=== PATIENT | female | born 1985 | race African-American/Black ===

== ENCOUNTER 2016-08-04 23:02 | Emergency (ER) | payer SELFPAY ==
[2016-08-04] MEDS ORDERED: ACETAMINOPHEN 325 MG TAB ONE (23:16)
[2016-08-05] MEDS ORDERED: SODIUM CHLORIDE 0.9% 1,000 ML ONE
[2016-08-05] MEDS ORDERED: AZITHROMYCIN 250 MG TAB ONE (00:25)
== END 2016-08-05 02:48 | disposition home or self-care (01) ==
LOC: ER 23:02
CPT/HCPCS: 36415; 71010; 80053; 81001; 83605; 84703; 85025; 87040; 87088; 87804; 87880; 96360; 96361